=== PATIENT | female | born 1960 | race Caucasian/White ===

== ENCOUNTER 2018-05-23 17:14 | Inpatient (IN) | payer SELFPAY ==
[2018-05-23] MEDS ORDERED: Magnesium Sulfate 2 GM in Sodium Chloride 0.9% 100 ML IVPB ONE (18:15)
[2018-05-23 18:23] LABS: #Eosinphils 0.2 thou/uL (0.0-0.7); #Lymphocytes 0.9 thou/uL (1.20-3.40); #Monocytes 0.3 thou/uL (0.11-0.59); #Neutrophils 9.2 thou/uL (1.40-6.50); %Basophils 0.4 % (0.0-1.0); %Lymphocytes 8.7 % (21.0-51.0); %Monocytes 2.4 % (0.0-10.0); %Neutrophils 86.5 % (42.0-75.0); Hemoglobin 15.1 g/dL (12.0-16.0); Mean Corpuscular HGB CONC 33.3 g/dL (32.0-36.0); Mean Corpuscular Hemoglobin 33.7 pg (27.0-31.0); Mean Platelet Volume 5.9 fL (7.4-10.4); Platelet Count 274 thou/uL (130-400); Red Blood Cell (RBC) Count 4.48 mill/uL (4.20-5.40); White Blood Cell (WBC) Count 10.6 thou/uL (4.8-10.8)
[2018-05-23 18:26] LABS: pH, Arterial 7.35 (7.35-7.45)
[2018-05-23 18:28] LABS: CO2 Tension 59.8 mmHg (35.0-45.0); O2 Tension (PaO2) 63.4 mmHg (80.0-100.0)
[2018-05-23 18:29] LABS: Actual Bicarbonate (HCO3a) 32.5 mEq/L (22-28); Hematocrit-ABG 46.1 % (36.0-47.0)
[2018-05-23 18:30] LABS: Analyzer IN Cardio ER; Calcium, Ionized 1.2 mmol/L (1.12-1.30); Puncture Site RRA
[2018-05-23 18:49] LABS: Troponin I Less than 0.010 ng/mL (< 0.028)
[2018-05-23] MEDS ORDERED: Ondansetron HCl/PF 4 MG/2 ML Vial IVP PRN (19:55)
[2018-05-23] MEDS: cefTRIAXone\\ROCEPHIN 1 GM in Sodium Chloride 0.9% 100 ML IVPB SCH (21:13)
[2018-05-23] MEDS: HYDROcodone/Acetaminophen 7.5/325 mg Tablet PO PRN (21:44)
[2018-05-23 22:08] VITALS: BMI 31.9
[2018-05-23] MEDS: Azithromycin 500 MG in Sodium Chloride 0.9% 250 ML 250 ML IVPB SCH (22:42)
--- NOTE | 2018-05-23 23:12 | ULT ---
LEFT LOWER EXTREMITY VENOUS DUPLEX STUDY: 05/23/18 Deep veins of the left leg evaluated with color doppler, spectral analysis and compression. INDICATIONS: Left lower extremity pain and edema. Deep veins of left lower extremity evaluated including common femoral, profunda femoral, femoral vein , popliteal, and posterior tibial vein. Greater saphenous vein evaluated. These veins show normal bl ood flow and compression. No evidence of DVT. IMPRESSION: No evidence of left lower extremity DVT. POS: AUNG
[2018-05-24] MEDS: Acetaminophen 325 MG TAB PO PRN (00:25)
--- NOTE | 2018-05-24 00:33 | HP ---
CODE STATUS: FULL CODE. PRIMARY CARE PHYSICIAN: The patient is from out of town. No PCP in the area. TIME OF EVALUATION: 7:40 p.m. CHIEF COMPLAINT: Shortness of breath. HISTORY OF PRESENT ILLNESS: This is a 58-year-old female with past medical history of COPD. The patient came to the hospital after having shortness of breath that has been getting worse gradually, for the past 2 days, with no clear triggers, no alleviating factors. The patient believes that it might be related to how dry and hot the weather is, because she did not have the problem before, exposing herself to the weather, the symptoms are reported as moderate to severe. The patient has some chest pain from the cough. REVIEW OF SYSTEMS: Constitutional: No fever, no chills. Generalized weakness. Respiratory: The patient has cough. No sputum production, shortness of breath. Cardiovascular: No chest pain, palpitation, shortness of breath. Gastrointestinal: No nausea, no vomiting, no diarrhea or abdominal pain. TOWING PILOT: No dizziness, headache, feeling lightheaded. Genitourinary: No burning on urination. Extremities: No leg swelling. All other systems reviewed were negative except for the findings mentioned above. PAST MEDICAL HISTORY: COPD, hypertension, hypothyroidism, drop foot. PAST SURGICAL HISTORY: No surgeries in the past. PSYCHIATRIC HISTORY: Anxiety and depression. SOCIAL HISTORY: The patient is a former drug user, abuse cocaine and methamphetamines, former tobacco smoker. FAMILY HISTORY: Reported as negative. ALLERGIES: CODEINE and IBUPROFEN. REPORTED MEDICATIONS: [place] Thyroid, metoprolol, amlodipine, [place], Valium. PHYSICAL EXAMINATION: VITAL SIGNS: On presentation, blood pressure 156/100, heart rate 80, respiratory rate 21, oxygen saturation 99% on 2 liters. GENERAL APPEARANCE: The patient is alert, oriented, not in acute distress. HEENT: Eyes: Normal conjunctivae. Moist oral mucosa. Anicteric. NECK: No JVD. RESPIRATORY: Bilateral air entry is reduced. No rales. The patient has bilateral scattered wheezing. Symmetrical expansion. CARDIOVASCULAR: Normal rate, regular rhythm, no murmurs, no gallop. No edema. ABDOMEN: Soft, normal bowel sounds. MUSCULOSKELETAL: Baseline range of motion and strength. No tenderness. SKIN: Warm and intact. No pallor, no rash, no redness. NEUROLOGIC: Baseline sensory. No evidence of any new focal weakness. Baseline speech. Cranial nerve seems to be intact. PSYCHIATRIC: The patient is in good mood. No anxiety, oriented, optimal judgment. LABORATORY DATA AND IMAGING: White count was 10, hemoglobin was 15, platelet count 274. ABG was done with pH 7.35, pCO2 of 59, oxygen 63, that was on nasal cannula. Troponin was negative. Chemistry was reported as negative. The EKG was discussed with the performing physician in the ER, the patient had normal sinus rhythm at a rate of 80 with no acute findings for ischemia. Chest x-ray prior to transfer was done was discussed with ER physician, it was negative. ASSESSMENT AND PLAN: The patient will be placed in the hospital for the following medical problems: 1. Chronic obstructive pulmonary disease exacerbation, the patient has hypoxia prior to transfer, improved with nasal cannula, the reported saturation in the 80s, has a pCO2 retention in the ABG. The patient has been treated with antibiotics, steroids, and nebulizer. We will monitor overnight. 2. Acute hypoxic respiratory failure, the patient was transferred to hospital. Since prior to transfer, she had saturations in the 80s, that has improved with treatment in ER and also supplemental oxygen. During my examination, saturation is 95% on 2 liters. We will treat underlying condition and continue oxygen support. 3. Uncontrolled hypertension with systolic blood pressure higher than 140, reconcile home medications, adjust the treatment as needed. 4. History of depression and anxiety, this is chronic, seems to be stable at this point. 5. Deep venous thrombosis prophylaxis. MTDD
[2018-05-24] MEDS: HYDROcodone/Acetaminophen 7.5/325 mg Tablet PO PRN ×4 (03:50→20:53)
[2018-05-24 06:28] LABS: Band 2 % (5-11); Hemoglobin 14.7 g/dL (12.0-16.0); Lymphocytes 6 % (21-51); MDiff Complete? YES; Mean Corpuscular HGB CONC 33.4 g/dL (32.0-36.0); Mean Corpuscular Hemoglobin 33.8 pg (27.0-31.0); Mean Platelet Volume 6.1 fL (7.4-10.4); Monocytes 3 % (0-10); Neutrophil 89 % (42-75); Platelet Count 286 thou/uL (130-400); RBC Distribution Width 11.9 % (11.5-14.5); Red Blood Cell (RBC) Count 4.33 mill/uL (4.20-5.40); White Blood Cell (WBC) Count 7.6 thou/uL (4.8-10.8)
[2018-05-24 06:29] LABS: Anion Gap 14 mmol/L (10-20); BUN (Urea Nitrogen) 13 mg/dL (9.8-20.1); Calc. Creatinine Clearance 138 mL/min (70-130); Calcium 9.5 mg/dL (7.8-10.44); Carbon Dioxide 28 mmol/L (22-29); Chloride 104 mmol/L (98-107); Estimated GFR-MDRD Greater than 90; Glucose 169 mg/dL (70-105); Potassium 4.8 mmol/L (3.5-5.1); Sodium 141 mmol/L (136-145)
[2018-05-24 08:04] LABS: Acetaminophen Less than 6.0 mcg/mL (10.0-30.0); Alcohol Less than 10 mg/dL (Less than 10); Salicylate Less than 8.0 mg/dL (15.0-30.0)
[2018-05-24] MEDS: Enoxaparin Sodium 40 MG/0.4 ML SYRINGE SC SCH (08:05)
--- NOTE | 2018-05-24 08:41 | RAD ---
CHEST 1 VIEW: HISTORY: Chest pain. FINDINGS: Cardiac silhouette is magnified by projection. Pulmonary vasculature upper limits of normal. Subtle ill-defined opacity projects over the right lower lobe and mid chest, possibly superior segment righ t lower lobe. No lobar consolidation or evidence of pneumothorax. Calcified granulomata are consist ent with healed granulomatous disease. IMPRESSION: Mild right lower lobe infiltrate. Clinical correlation regarding other signs and symptoms of right l ower lobe pneumonitis is required. Please consider upright PA and lateral views of the chest when pa tient can undergo that exam. POS: AUNG
[2018-05-24 09:40] LABS: Amphetamine Not Detected (NotDetected); Barbiturates Screen Not Detected (NotDetected); Benzodiazepine Screen Detected (NotDetected); Cocaine Metabolite Screen Not Detected (NotDetected); Medtox Control Line Valid? VALID (VALID); Medtox Reader # READER 4; Methadone Not Detected (NotDetected); Methamphetamine Not Detected (NotDetected); Opiate Screen Detected (NotDetected); Oxycodone Screen Not Detected (NotDetected); Phencyclidine (PCP) Not Detected (NotDetected); THC/Cannabinoid Screen Not Detected (NotDetected); Tricyclic Screen Not Detected (NotDetected)
--- NOTE | 2018-05-24 11:07 | PDOC.PN ---
- Subjective Encounter Start Date: 05/24/18 Encounter Start Time: 08:30 Subjective: sob is better, no fever - Objective Resuscitation Status: Resuscitation Status FULL:Full Resuscitation MAR Reviewed: Yes Vital Signs & Weight: Vital Signs (12 hours) Temp Pulse Resp BP BP Pulse Ox 05/24/18 09:13 108 H 22 H 94 L 05/24/18 09:09 93 L 05/24/18 08:00 97.0 F L 92 16 05/24/18 07:48 97.0 F L 92 16 178/82 H 05/24/18 03:02 97.8 F 93 16 167/93 H 100 05/24/18 00:52 18 93 L 05/24/18 00:00 97.7 F 136/89 88 L Weight Weight 204 lb I&O: 05/23/18 05/24/18 05/25/18 06:59 06:59 06:59 Intake Total 950 Output Total 650 Balance 300 Result Diagrams: 05/24/18 05:53 05/24/18 05:53 Phys Exam - Physical Examination HEENT: PERRLA, moist MMs Neck: no JVD, supple Respiratory: no wheezing, no rales rhonchi+ Cardiovascular: RRR, no significant murmur Gastrointestinal: soft, non-tender, positive bowel sounds Musculoskeletal: no edema, pulses present Neurological: non-focal, moves all 4 limbs Psychiatric: A&O x 3 Dx/Plan (1) COPD exacerbation Code(s): J44.1 - CHRONIC OBSTRUCTIVE PULMONARY DISEASE W (ACUTE) EXACERBATION Status: Acute (2) PNA (pneumonia) Code(s): J18.9 - PNEUMONIA, UNSPECIFIED ORGANISM Status: Acute Qualifiers: Pneumonia type: due to unspecified organism Laterality: right (3) HTN (hypertension) Code(s): I10 - ESSENTIAL (PRIMARY) HYPERTENSION Status: Chronic Qualifiers: Hypertension type: essential hypertension Qualified Code(s): I10 - Essential (primary) hypertension (4) Hypothyroidism Code(s): E03.9 - HYPOTHYROIDISM, UNSPECIFIED Status: Chronic Qualifiers: Hypothyroidism type: unspecified Qualified Code(s): E03.9 - Hypothyroidism , unspecified (5) Acute respiratory failure with hypoxia Code(s): J96.01 - ACUTE RESPIRATORY FAILURE WITH HYPOXIA Status: Resolved - Plan is on nasal canula now -: continue zithro, ceftriaxone, nebs and steroids -: cxr results noted, tx to med floor -: mcv is 101, eats meat and veggies, no heavy alc usage -: chronic left foot drop after child but amb well * . Review of Systems - Medications/Allergies Allergies/Adverse Reactions: Allergies Allergy/AdvReac Type Severity Reaction Status Date / Time codeine Allergy Verified 05/23/18 20:46 ibuprofen Allergy Verified 05/23/18 20:46 Medications: Current Medications Acetaminophen (Tylenol) 650 mg PO Q4H PRN PRN Reason: Headache/Fever or Pain Last Admin: 05/24/18 00:25 Dose: 650 mg Hydrocodone Bitart/Acetaminophen ([place] 7.5/325) 2 tab PO Q6H PRN PRN Reason: Moderate Pain (4-6) Last Admin: 05/24/18 09:28 Dose: 2 tab Albuterol/Ipratropium (Duoneb) 3 ml NEB [id number] PRN PRN Reason: SOB &/or Wheezing Last Admin: 05/24/18 09:13 Dose: 3 ml Enoxaparin Sodium (Lovenox) 40 mg SC 0900 [facility] Last Admin: 05/24/18 08:05 Dose: 40 mg Ceftriaxone Sodium 1 gm/ (Sodium Chloride) 100 mls @ 200 mls/hr IVPB Q24HR NIGEL Last Admin: 05/23/18 21:13 Dose: 100 mls Azithromycin 500 mg/ Sodium (Chloride) 250 mls @ 250 mls/hr IVPB Q24HR NIGEL Last Admin: 05/23/18 22:42 Dose: 250 mls Methylprednisolone Sodium Succinate (Solu-Medrol) 40 mg IVP Q6HR NIGEL Last Admin: 05/24/18 06:04 Dose: Not Given Ondansetron HCl (Zofran) 4 mg IVP Q6H PRN PRN Reason: Nausea/Vomiting
[2018-05-24] MEDS: Azithromycin 500 MG in Sodium Chloride 0.9% 250 ML 250 ML IVPB SCH (20:42)
[2018-05-24] MEDS: cefTRIAXone\\ROCEPHIN 1 GM in Sodium Chloride 0.9% 100 ML IVPB SCH (21:15)
[2018-05-25] MEDS: HYDROcodone/Acetaminophen 7.5/325 mg Tablet PO PRN (02:59)
[2018-05-25] MEDS: Acetaminophen 325 MG TAB PO PRN ×2 (05:46→12:42)
[2018-05-25] MEDS ORDERED: HYDROcodone/Acetaminophen 7.5/325 mg Tablet PO PRN (07:35)
[2018-05-25] MEDS: Amlodipine 5 MG TAB PO SCH (08:10)
[2018-05-25] MEDS: Enoxaparin Sodium 40 MG/0.4 ML SYRINGE SC SCH (08:10)
[2018-05-25] MEDS: Metoprolol Tartrate 25 MG TAB PO SCH ×2 (08:10→19:47)
[2018-05-25] MEDS ORDERED: Thyroid 60 MG TAB PO SCH (08:30)
--- NOTE | 2018-05-25 11:54 | PDOC.PN ---
- Subjective Encounter Start Date: 05/25/18 Encounter Start Time: 10:30 Subjective: wants extra norco like q4h, explained to her it will worsen her resp issue -: no sob but has back pain and doesn't feel good this am - Objective Resuscitation Status: Resuscitation Status FULL:Full Resuscitation MAR Reviewed: Yes Vital Signs & Weight: Vital Signs (12 hours) Temp Pulse Resp BP BP Pulse Ox 05/25/18 11:40 98.1 F 90 20 152/93 H 91 L 05/25/18 08:10 84 160/101 H 05/25/18 08:02 98.9 F 96 20 160/101 H 90 L 05/25/18 08:00 98.9 F 84 20 90 L 05/25/18 04:00 98.4 F 82 20 148/90 H 93 L 05/25/18 00:46 98.1 F 80 20 129/89 92 L Weight Weight 204 lb I&O: 05/24/18 05/25/18 05/26/18 06:59 06:59 06:59 Intake Total 950 1310 240 Output Total 650 Balance 300 1310 240 Result Diagrams: 05/24/18 05:53 05/24/18 05:53 Phys Exam - Physical Examination HEENT: PERRLA, moist MMs Neck: no JVD, supple Respiratory: no wheezing, no rales rhonchi+ Cardiovascular: RRR, no significant murmur Gastrointestinal: soft, no distention, positive bowel sounds Musculoskeletal: no edema, pulses present Neurological: non-focal, moves all 4 limbs Psychiatric: normal affect, A&O x 3 Dx/Plan (1) COPD exacerbation Code(s): J44.1 - CHRONIC OBSTRUCTIVE PULMONARY DISEASE W (ACUTE) EXACERBATION Status: Acute (2) PNA (pneumonia) Code(s): J18.9 - PNEUMONIA, UNSPECIFIED ORGANISM Status: Acute Qualifiers: Pneumonia type: due to unspecified organism Laterality: right (3) HTN (hypertension) Code(s): I10 - ESSENTIAL (PRIMARY) HYPERTENSION Status: Chronic Qualifiers: Hypertension type: essential hypertension Qualified Code(s): I10 - Essential (primary) hypertension (4) Hypothyroidism Code(s): E03.9 - HYPOTHYROIDISM, UNSPECIFIED Status: Chronic Qualifiers: Hypothyroidism type: unspecified Qualified Code(s): E03.9 - Hypothyroidism , unspecified (5) Acute respiratory failure with hypoxia Code(s): J96.01 - ACUTE RESPIRATORY FAILURE WITH HYPOXIA Status: Resolved - Plan chronic back pain: cautious use of morphine prn -: may dc anytime home if she feels good -: omnicef, prednisone, nebs -: norvasc and lopressor -: to amb in hallway as tolerated * . Review of Systems - Medications/Allergies Allergies/Adverse Reactions: Allergies Allergy/AdvReac Type Severity Reaction Status Date / Time codeine Allergy Verified 05/23/18 20:46 ibuprofen Allergy Verified 05/23/18 20:46 Medications: Current Medications Acetaminophen (Tylenol) 650 mg PO Q4H PRN PRN Reason: Headache/Fever or Pain Last Admin: 05/25/18 05:46 Dose: 650 mg Hydrocodone Bitart/Acetaminophen ([place] 7.5/325) 2 tab PO Q4H PRN PRN Reason: Pain Albuterol/Ipratropium (Duoneb) 3 ml NEB [id number] PRN PRN Reason: SOB &/or Wheezing Last Admin: 05/24/18 16:24 Dose: 3 ml Amlodipine Besylate (Norvasc) 5 mg PO DAILY [facility] Last Admin: 05/25/18 08:10 Dose: 5 mg Cefdinir (Omnicef) 300 mg PO BID [facility] Enoxaparin Sodium (Lovenox) 40 mg SC 0900 [facility] Last Admin: 05/25/18 08:10 Dose: 40 mg Metoprolol Tartrate (Lopressor) 25 mg PO BID [facility] Last Admin: 05/25/18 08:10 Dose: 25 mg Morphine Sulfate (Morphine) 2 mg SLOW IVP 1000 [facility] Stop: 05/25/18 12:00 Last Admin: 05/25/18 09:48 Dose: 2 mg Morphine Sulfate (Morphine) 2 mg SLOW IVP Q4H PRN PRN Reason: Chest Pain/BP Elevations Ondansetron HCl (Zofran) 4 mg IVP Q6H PRN PRN Reason: Nausea/Vomiting Prednisone (Prednisone) 40 mg PO ONE [facility] Prednisone (Prednisone) 20 mg PO QAM-WM [facility] Thyroid ([place] Thyroid) 60 mg PO 0600 [facility]
[2018-05-25] MEDS ORDERED: predniSONE 20 MG TAB PO SCH (12:00)
[2018-05-25] MEDS: Cefdinir 300 MG CAP PO SCH (19:47)
[2018-05-26] MEDS ORDERED: Thyroid 60 MG TAB PO SCH (06:00)
[2018-05-26] MEDS ORDERED: predniSONE 20 MG TAB PO SCH (08:00)
[2018-05-26] MEDS: Cefdinir 300 MG CAP PO SCH (09:00)
[2018-05-26] MEDS: Amlodipine 5 MG TAB PO SCH (09:00)
[2018-05-26] MEDS: Metoprolol Tartrate 25 MG TAB PO SCH (09:00)
[2018-05-26] MEDS: Enoxaparin Sodium 40 MG/0.4 ML SYRINGE SC SCH (09:01)
--- NOTE | 2018-05-26 12:41 | PDOC.PN ---
- Subjective Encounter Start Date: 05/26/18 Encounter Start Time: 08:15 Subjective: no sob, feels better - Objective Resuscitation Status: Resuscitation Status FULL:Full Resuscitation MAR Reviewed: Yes Vital Signs & Weight: Vital Signs (12 hours) Temp Pulse Resp BP BP Pulse Ox 05/26/18 09:00 96 148/93 H 05/26/18 08:00 98.2 F 96 18 98 05/26/18 07:27 98.2 F 96 18 148/93 H 98 Weight Weight 204 lb I&O: 05/25/18 05/26/18 05/27/18 06:59 06:59 06:59 Intake Total 1310 1600 240 Balance 1310 1600 240 Result Diagrams: 05/24/18 05:53 05/24/18 05:53 Phys Exam - Physical Examination HEENT: PERRLA, moist MMs Neck: no JVD, supple Respiratory: no wheezing, no rales Cardiovascular: RRR, no significant murmur Gastrointestinal: soft, non-tender, positive bowel sounds Musculoskeletal: no edema, pulses present Neurological: non-focal, moves all 4 limbs Psychiatric: normal affect, A&O x 3 Dx/Plan (1) COPD exacerbation Code(s): J44.1 - CHRONIC OBSTRUCTIVE PULMONARY DISEASE W (ACUTE) EXACERBATION Status: Acute (2) PNA (pneumonia) Code(s): J18.9 - PNEUMONIA, UNSPECIFIED ORGANISM Status: Acute Qualifiers: Pneumonia type: due to unspecified organism Laterality: right (3) HTN (hypertension) Code(s): I10 - ESSENTIAL (PRIMARY) HYPERTENSION Status: Chronic Qualifiers: Hypertension type: essential hypertension Qualified Code(s): I10 - Essential (primary) hypertension (4) Hypothyroidism Code(s): E03.9 - HYPOTHYROIDISM, UNSPECIFIED Status: Chronic Qualifiers: Hypothyroidism type: unspecified Qualified Code(s): E03.9 - Hypothyroidism , unspecified (5) Acute respiratory failure with hypoxia Code(s): J96.01 - ACUTE RESPIRATORY FAILURE WITH HYPOXIA Status: Resolved - Plan hemostable -: dc pt home -: to continue steroid taper and omnicef along with nebs * .
[2018-05-26 16:00] VITALS: BP 163/107; TEMP 97.7
--- NOTE | 2018-05-26 23:42 | DIS ---
DATE OF ADMISSION: 05/23/2018 DATE OF DISCHARGE: 05/26/2018 DISCHARGE DISPOSITION: To home. PRIMARY DISCHARGE DIAGNOSES: Acute on chronic obstructive pulmonary disease exacerbation resolving and pneumonia resolving. SECONDARY DISCHARGE DIAGNOSES: Hypertension, hypothyroidism, acute respiratory failure with hypoxia on arrival, resolved. PROCEDURES DONE DURING HOSPITALIZATION: Chest x-ray done on the day of admission showed right lower lobe infiltrate. Left lower extremity ultrasound venous Doppler done showed no evidence of DVT. Hemoglobin and hematocrit 14 and 43 and platelet count 286. Blood gas on arrival showed pH of 7.35, pCO2 59 , pO2 63. One set of cardiac enzymes were negative. DISCHARGE MEDICATIONS: Patient to continue Omnicef 300 mg p.o. twice daily for another 3 days, prednisone tapering dose starting at 10 mg twice daily over a course of 12 days and to discontinue, Lopressor 50 mg twice daily, [place] Thyroid 60 mg p.o. daily, DuoNebs 4 times daily, Ava p.r.n. for pain, Symbicort inhaler 2 puffs twice daily, Norvasc 5 mg daily. ALLERGIES: CODEINE and IBUPROFEN. DISCHARGE PLAN: Patient to follow up with primary care physician in 1 week. BRIEF COURSE DURING HOSPITALIZATION: Patient initially came to ER on with complaints of shortness of breath and wheezing. Her initial x-rays also showed right lower lobe infiltrate. The patient has known history of COPD. She was placed on broad spectrum antibiotics, steroids and nebulizations. She has responded well to above measures. She needs to continue antibiotics for another 3 days and steroid taper as prescribed. The patient also has chronic back pain and needs to see a primary care physician for further workup towards the same. was requesting narco and morphine every 4hrs for her back issue and has been counselled against any use of narcotic in view of her lung problem and respiratory depression. She is hemodynamically stable, ambulating and eating well prior to discharge. Please see a [id number] documentation on SMRxT for the day of discharge. JUAN PABLO
== END 2018-05-26 17:52 | disposition home or self-care (01) | DRG 193 ==
LOC: ERS 17:14 → 2NO 19:20 → T4-A 05-24 12:33
PROVIDERS: ADMIT Hospitalist; ATTEND Hospitalist
DX: J18.9 Pneumonia, unspecified organism (principal); J96.01 Acute respiratory failure with hypoxia; J44.1 Chronic obstructive pulmonary disease with (acute) exacerbation; I10 Essential (primary) hypertension; E03.9 Hypothyroidism, unspecified; M21.379 Foot drop, unspecified foot; F41.9 Anxiety disorder, unspecified; F32.9 Major depressive disorder, single episode, unspecified; Z87.891 Personal history of nicotine dependence
CPT/HCPCS: 36415; 71045; 80048; 80306; 80307; 82550; 82553; 82805; 84484; 85025; 90471; 90732; 93005; 94640; 94760; 96365; 96375; G0009; J0456; J0696; J1650; J2270; J2920; J3475; J7050; J7506; J7620

== ENCOUNTER 2018-05-27 01:22 | Inpatient (IN) | payer SELFPAY ==
[2018-05-27 03:20] LABS: #Basophils 0.1 thou/uL (0.0-0.2); #Eosinphils 0.2 thou/uL (0.0-0.7); #Lymphocytes 3.2 thou/uL (1.20-3.40); #Monocytes 0.9 thou/uL (0.11-0.59); #Neutrophils 5.5 thou/uL (1.40-6.50); %Basophils 0.6 % (0.0-1.0); %Eosinophils 2.2 % (0.0-10.0); %Monocytes 9.2 % (0.0-10.0); Hemoglobin 15.2 g/dL (12.0-16.0); Mean Corpuscular HGB CONC 33.6 g/dL (32.0-36.0); Mean Platelet Volume 5.8 fL (7.4-10.4); Platelet Count 265 thou/uL (130-400); Red Blood Cell (RBC) Count 4.47 mill/uL (4.20-5.40); White Blood Cell (WBC) Count 9.9 thou/uL (4.8-10.8)
[2018-05-27 03:41] LABS: ALT (SGPT) 12 U/L (8-55); AST (SGOT) 9 U/L (5-34); Albumin 4.1 g/dL (3.5-5.0); Alkaline Phosphatase 92 U/L (40-150); Anion Gap 14 mmol/L (10-20); BUN (Urea Nitrogen) 15 mg/dL (9.8-20.1); Bilirubin, Total 0.2 mg/dL (0.2-1.2); Calc. Creatinine Clearance 0 mL/min (70-130); Calcium 9.7 mg/dL (7.8-10.44); Carbon Dioxide 34 mmol/L (22-29); Chloride 98 mmol/L (98-107); Estimated GFR-MDRD Greater than 90; Globulin 2.5 g/dL (2.4-3.5); Glucose 90 mg/dL (70-105); Potassium 4.2 mmol/L (3.5-5.1); Protein, Total 6.6 g/dL (6.0-8.3); Sodium 142 mmol/L (136-145)
[2018-05-27 03:45] LABS: Troponin I Less than 0.010 ng/mL (< 0.028)
[2018-05-27] MEDS ORDERED: methylPREDNISolone Sod Succ/PF 125 MG/2 ML VIAL ONE (04:51)
[2018-05-27] MEDS ORDERED: Acetaminophen 500 MG TAB ONE (04:51)
[2018-05-27] MEDS ORDERED: Nitroglycerin 0.4 MG TAB (25 Tab Bottle) ONE (05:10)
[2018-05-27] MEDS ORDERED: hydrALAZINE 20 MG/ML VIAL ONE (05:24)
[2018-05-27] MEDS ORDERED: Lorazepam 2 MG/ML VIAL ONE (05:45)
[2018-05-27] MEDS ORDERED: Ondansetron HCl/PF 4 MG/2 ML Vial IVP PRN ×2 (07:21→14:44)
[2018-05-27] MEDS ORDERED: Ondansetron ODT 4 MG TAB SL PRN (07:21)
[2018-05-27] MEDS ORDERED: Acetaminophen 325 MG TAB PO PRN (07:21)
[2018-05-27] MEDS ORDERED: hydrALAZINE 20 MG/ML VIAL SLOW IVP PRN ×2 (07:22→14:44)
[2018-05-27 08:52] VITALS: BMI 30.9
--- NOTE | 2018-05-27 09:15 | RAD ---
CHEST PA AND LATERAL: Date: 05/27/18 HISTORY: 58-year-old female with history of cough and respiratory difficulty, wheezing. COMPARISON: 05/24/18. FINDINGS: Increased linear and interstitial and minimal reticulonodular parenchymal changes bilaterally, stable . Heart size is normal. No new confluent process. No pneumothorax. No pleural effusion. IMPRESSION: Stable increased linear and interstitial and reticulonodular parenchymal changes bilaterally, includi ng the right upper lobe, without evidence for new confluent pneumonia. Atherosclerosis of the aorta w ith ectasia. No significant new process. POS: OFF
[2018-05-27] MEDS ORDERED: HYDROcodone/Acetaminophen 5/325 mg Tablet PO PRN (11:24)
[2018-05-27] MEDS ORDERED: Acetaminophen 500 MG TAB PO PRN (14:44)
[2018-05-27] MEDS ORDERED: Benzonatate 100 MG CAP PO PRN (14:44)
[2018-05-27] MEDS ORDERED: cloNIDine 0.1 MG TAB PO PRN (14:44)
[2018-05-27] MEDS ORDERED: Ondansetron ODT 4 MG TAB PO PRN (14:44)
[2018-05-27] MEDS ORDERED: predniSONE 20 MG TAB PO SCH (15:00)
[2018-05-27] MEDS: HYDROcodone/Acetaminophen 7.5/325 mg Tablet PO PRN ×2 (15:42→20:16)
[2018-05-27] MEDS: Mometasone/Formoterol 120 PUFF INHALER INH SCH (19:05)
[2018-05-27] MEDS: Metoprolol Tartrate 50 MG TAB PO SCH (20:15)
[2018-05-27] MEDS: Montelukast Sodium 10 mg Tablet PO SCH (20:15)
[2018-05-27] MEDS: Famotidine 20 MG TAB PO SCH (20:16)
[2018-05-27] MEDS: guaiFENesin ER 600 MG TAB PO SCH (20:16)
--- NOTE | 2018-05-27 20:30 | HP ---
DATE OF ADMISSION: 05/27/2018 PRIMARY CARE PHYSICIAN: Dr. Colby Jorge in [place], [place]. CHIEF COMPLAINT: Shortness of breath. HISTORY OF PRESENT ILLNESS: This is a 58-year-old female who presents to [facility] after a recent admission to [facility] from 05/23/2018 to 05/26/2018. The patient was discharged home on 05/26/2018 after chronic obstructive pulmonary disease exacerbation an d questionable pneumonia of the right lower lobe. The patient was placed on prednisone and Omnicef a nd continued on her regular nebulized treatments at home. The patient states that she experienced in creased shortness of breath and states her oxygen saturation was in the mid 80% range normally runnin g in the upper 80s to low 90s. The patient denies any specific fever, chills, unilateral weakness, l ower extremity swelling, but did take her Ventolin inhaler as well as Symbicort. The patient states she has typical symptoms and pneumonia exacerbation approximately once every year. The patient denie s using any home oxygen or needing chronic oxygen supplementation. The patient denies any tobacco us e, but does use E-cigarettes. In the emergency room, the patient underwent general evaluation includ ing portable chest imaging showing no acute infiltrate or worsening findings from previous chest imag ing. The patient did receive Ativan, hydralazine, nitroglycerin, Solu-Medrol and Tylenol. The patie nt was referred to the telemetry unit. PAST MEDICAL HISTORY: 1. Chronic obstructive pulmonary disease. 2. Tobacco use, currently E-cigarettes. 3. Chronic pain syndrome with chronic narcotic therapy. 4. Hypertension. 5. Hypothyroidism. 6. History of foot drop. PAST SURGICAL HISTORY: Reviewed and negative. PSYCHIATRIC HISTORY: Positive for anxiety and depression. FAMILY HISTORY: No inheritable diseases per patient report. SOCIAL HISTORY: Patient is x3. Resident of [place], [place]. Visiting her son in the [facility]/[place] area. Former tobacco user, quitting approximately 6 months ago, now using E-cigar ettes. History of remote use of cocaine and methamphetamines, none currently. No alcohol use. No c urrent illicit drug use. 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 CURRENT HOME MEDICATIONS: 1. Amlodipine 5 mg one tablet p.o. daily. 2. Symbicort 160/4.5 two puffs inhaled b.i.d. 3. Omnicef 300 mg p.o. b.i.d. 4. Guaifenesin ER 600 mg p.o. b.i.d. 5. [place] 7.5/325 mg 2 tabs p.o. q.4 hours p.r.n. 6. DuoNeb 3 mL nebulized q.i.d. 7. Metoprolol tartrate 100 mg p.o. b.i.d. 8. Prednisone 10 mg p.o. b.i.d. 9. [place] Thyroid 60 mg p.o. daily. ALLERGIES: CODEINE and IBUPROFEN. REVIEW OF SYSTEMS: The following complete review of systems was negative, unless otherwise mentioned in the HPI or below: Constitutional: Weight loss or gain, ability to conduct usual activities. Sk in: Rash, itching. Eyes: Double vision, pain. ENT/Mouth: Nose bleeding, neck stiffness, pain, te nderness. Cardiovascular: Palpitations, dyspnea on exertion, orthopnea. Respiratory: Shortness of breath, wheezing, cough, hemoptysis, fever or night sweats. Gastrointestinal: Poor appetite, abdom inal pain, heartburn, nausea, vomiting, constipation, or diarrhea. Genitourinary: Urgency, frequenc y, dysuria, nocturia. Musculoskeletal: Pain, swelling. Neurologic/Psychiatric: Anxiety, depressio n. Allergy/Immunologic: Skin rash, bleeding tendency. PHYSICAL EXAMINATION: VITAL SIGNS: Currently, blood pressure 128/79, pulse 93, respiratory rate 19, temperature 97.8 degre es Fahrenheit, O2 saturation 95% on 2 liters per minute by nasal cannula. GENERAL APPEARANCE: This is a 58-year-old female, anxious appearing, responsive and approp riate. HEENT: Pupils are equal, round, and reactive to light and accommodation. Extraocular muscles are in tact. No scleral icterus, no conjunctival injection. Nares patent. OP is clear. Teeth in fair rep air. NECK: Supple, no cervical adenopathy, no thyromegaly, no carotid bruits, no JVD appreciated. Cervic al spine with full active and passive range of motion. CHEST: Expiratory wheezes in the right hemithorax. Otherwise, lung sounds are clear. CARDIOVASCULAR: S1, S2 with distant heart sounds. No murmur, rub or gallop appreciated. ABDOMEN: Rounded, soft, nontender, nondistended. Bowel sounds are positive in all four quadrants. There is no hepatosplenomegaly, no abdominal bruits, no rebound or guarding appreciated. EXTREMITIES: Warm and dry with fair turgor. No clubbing, cyanosis or asymmetric edema appreciated. Pulses palpable distally at the dorsalis pedis, posterior tibial, and popliteal arteries bilaterally . Capillary refill less than 2 seconds. NEUROLOGIC: Right lower extremity foot drop noted consistent with prior history. The patient not ob served ambulatory during this exam. Rest of the cranial nerves 2-12 are grossly intact. PERTINENT LABORATORY AND X-RAY FINDINGS: Carbon dioxide level 34. The rest of the complete metaboli c profile within normal limits. CBC showed MCV of 101 with hemoglobin 15, hematocrit 45, platelet co unt 265. Portable chest x-ray dated 05/27/2018 showed interstitial and reticulonodular parenchymal c hanges bilaterally. EKG dated 05/27/2018 by my interpretation shows sinus mechanism with heart rates in the 80s. Normal R-wave progression noted in the precordial leads. Normal axis. No acute ST-T w ave changes appreciated. ASSESSMENT AND PLAN: 1. Acute chronic obstructive pulmonary disease exacerbation. Mild. We will place in observation st atus. Continue DuoNebs q.3 hours. Continue prednisone 40 mg daily. Zithromax 500 mg p.o. daily. A dd Singulair 10 mg p.o. daily. Resume Symbicort 2 puffs inhaled b.i.d. 2. Hypertension, labile. Resume home antihypertensive regimen to include amlodipine 5 mg daily, and metoprolol 100 mg p.o. b.i.d. 3. Hypothyroidism. Continue [place] Thyroid 60 mg daily. 4. Chronic pain syndrome. Continue home regimen to include [place] 7.5/325 mg 2 tabs p.o. q.4 hours p .r.n. 5. Prophylaxis. Sequential compression devices while in bed. Pepcid 20 mg p.o. b.i.d. 6. Code status is FULL. Surrogate medical decision maker is patient's son.
[2018-05-28] MEDS: HYDROcodone/Acetaminophen 7.5/325 mg Tablet PO PRN ×6 (00:31→20:56)
[2018-05-28 05:09] LABS: ALT (SGPT) 12 U/L (8-55); AST (SGOT) 8 U/L (5-34); Albumin 3.8 g/dL (3.5-5.0); Alkaline Phosphatase 85 U/L (40-150); Anion Gap 15 mmol/L (10-20); BUN (Urea Nitrogen) 16 mg/dL (9.8-20.1); Bilirubin, Total 0.3 mg/dL (0.2-1.2); Calc. Creatinine Clearance 145 mL/min (70-130); Calcium 9.4 mg/dL (7.8-10.44); Carbon Dioxide 31 mmol/L (22-29); Chloride 100 mmol/L (98-107); Estimated GFR-MDRD Greater than 90; Globulin 2.3 g/dL (2.4-3.5); Glucose 107 mg/dL (70-105); Potassium 4.5 mmol/L (3.5-5.1); Protein, Total 6.1 g/dL (6.0-8.3); Sodium 141 mmol/L (136-145)
[2018-05-28 05:30] LABS: Band 2 % (5-11); Hemoglobin 14.6 g/dL (12.0-16.0); Lymphocytes 13 % (21-51); MDiff Complete? YES; Mean Corpuscular HGB CONC 32.6 g/dL (32.0-36.0); Mean Corpuscular Hemoglobin 33.3 pg (27.0-31.0); Mean Platelet Volume 6.5 fL (7.4-10.4); Monocytes 11 % (0-10); Neutrophil 72 % (42-75); Platelet Count 270 thou/uL (130-400); RBC Distribution Width 12.1 % (11.5-14.5); Reactive Lymphocytes 2 % (0-10); White Blood Cell (WBC) Count 11.2 thou/uL (4.8-10.8)
[2018-05-28] MEDS: Mometasone/Formoterol 120 PUFF INHALER INH SCH ×2 (06:12→19:40)
[2018-05-28] MEDS: predniSONE 20 MG TAB PO SCH (08:41)
[2018-05-28] MEDS: Azithromycin 250 MG TAB PO SCH (08:41)
[2018-05-28] MEDS: Amlodipine 5 MG TAB PO SCH (08:42)
[2018-05-28] MEDS: Metoprolol Tartrate 50 MG TAB PO SCH ×2 (08:42→20:56)
[2018-05-28] MEDS: guaiFENesin ER 600 MG TAB PO SCH ×2 (08:42→20:56)
[2018-05-28] MEDS: Famotidine 20 MG TAB PO SCH ×2 (08:42→20:56)
[2018-05-28] MEDS: Thyroid 30 MG TAB PO SCH (09:34)
--- NOTE | 2018-05-28 14:12 | PDOC.PN ---
- Subjective Encounter Start Date: 05/28/18 Encounter Start Time: 14:10 Feels better and then will have abrupt SOB when she feels like she is dying. Was admitted in [place] 6 months ago and had respiratory failure with pneumonia. Was on steroids for six months and gained 50 pounds. She does have daytime somnolence and wakes with headaches. Admits to orthopnea. - Objective Resuscitation Status: Resuscitation Status FULL:Full Resuscitation Vital Signs & Weight: Vital Signs (12 hours) Temp Pulse Resp BP BP BP Pulse Ox 05/28/18 11:26 88 25 H 79 L 05/28/18 11:14 98.2 F 86 16 135/73 78 L 05/28/18 08:45 91 L 05/28/18 08:42 85 177/97 H 05/28/18 08:30 93 L 05/28/18 07:30 97.9 F 85 23 H 05/28/18 07:20 97.9 F 85 23 H 177/97 H 177/97 H 98 05/28/18 06:12 89 16 93 L 05/28/18 04:34 83 05/28/18 04:00 97.5 F L 78 20 184/110 H 96 Weight Weight 197 lb 9.6 oz I&O: 05/27/18 05/28/18 05/29/18 06:59 06:59 06:59 Intake Total 1250 Output Total 950 Balance 300 Result Diagrams: 05/28/18 04:05 05/28/18 04:05 Phys Exam - Physical Examination Constitutional: NAD Obese HEENT: PERRLA, oral pharynx no lesions Neck: no JVD, supple Respiratory: no wheezing, no rales, no rhonchi, clear to auscultation bilateral Cardiovascular: RRR, no significant murmur, no rub Gastrointestinal: soft, non-tender, no distention, positive bowel sounds Musculoskeletal: no edema Psychiatric: normal affect, A&O x 3 Skin: no rash, normal turgor Dx/Plan (1) COPD exacerbation Code(s): J44.1 - CHRONIC OBSTRUCTIVE PULMONARY DISEASE W (ACUTE) EXACERBATION Status: Acute (2) HTN (hypertension) Code(s): I10 - ESSENTIAL (PRIMARY) HYPERTENSION Status: Chronic Qualifiers: Hypertension type: essential hypertension Qualified Code(s): I10 - Essential (primary) hypertension (3) Hypothyroidism Code(s): E03.9 - HYPOTHYROIDISM, UNSPECIFIED Status: Chronic Qualifiers: Hypothyroidism type: unspecified Qualified Code(s): E03.9 - Hypothyroidism , unspecified (4) Orthopnea Code(s): R06.01 - ORTHOPNEA Status: Acute - Plan * Continue bronchodilators, steroids. * Consult Pulmonology given the unusual nature of the episode hypoxia. * Needs sleep study. * Echo to assess the orthopnea and reported LE edema.
[2018-05-28] MEDS: Montelukast Sodium 10 mg Tablet PO SCH (20:55)
[2018-05-29] MEDS: HYDROcodone/Acetaminophen 7.5/325 mg Tablet PO PRN ×5 (01:48→21:15)
[2018-05-29] MEDS: Mometasone/Formoterol 120 PUFF INHALER INH SCH ×2 (07:46→18:08)
[2018-05-29] MEDS: Famotidine 20 MG TAB PO SCH ×2 (08:08→21:15)
[2018-05-29] MEDS: Metoprolol Tartrate 50 MG TAB PO SCH ×2 (08:08→21:15)
[2018-05-29] MEDS: Thyroid 30 MG TAB PO SCH (08:08)
[2018-05-29] MEDS: predniSONE 20 MG TAB PO SCH (08:08)
[2018-05-29] MEDS: guaiFENesin ER 600 MG TAB PO SCH ×2 (08:08→21:15)
[2018-05-29] MEDS: Azithromycin 250 MG TAB PO SCH (08:08)
[2018-05-29] MEDS: Amlodipine 5 MG TAB PO SCH (08:09)
[2018-05-29 12:21] LABS: pH, Arterial 7.22 (7.35-7.45)
[2018-05-29 12:22] LABS: Actual Bicarbonate (HCO3a) 35.2 mEq/L (22-28); Base Excess (BEa) 4.3 mEq/L (-2.0 to +3.0); CO2 Tension 87.1 mmHg (35.0-45.0); O2 Tension (PaO2) 91.5 mmHg (80.0-100.0)
[2018-05-29 12:23] LABS: Hemoglobin (Hb) 14.3 g/dL (12.0-16.0)
[2018-05-29 12:24] LABS: Calcium, Ionized 1.2 mmol/L (1.12-1.30)
[2018-05-29 12:25] LABS: ALV-art Gradient 12.325 (0-20); Puncture Site LRA
[2018-05-29] MEDS ORDERED: Furosemide 20 MG/2 ML VIAL SLOW IVP SCH (20:30)
--- NOTE | 2018-05-29 20:50 | PDOC.PN ---
- Subjective Encounter Start Date: 05/29/18 Encounter Start Time: 15:20 Patient went outside to smoke this morning. She was found sitting on a bench by the medical student working with me. He helped her get back to her room. Later in the morning, she had become obtunded and required Bipap and transfer to the [facility]. She feels like the Bipap is helping, but she doesn't like it. - Objective Resuscitation Status: Resuscitation Status FULL:Full Resuscitation Vital Signs & Weight: Vital Signs (12 hours) Temp Pulse Resp BP BP Pulse Ox 05/29/18 19:51 98.4 F 83 18 135/83 91 L 05/29/18 19:00 97.1 F L 70 20 93 L 05/29/18 18:48 77 16 94 L 05/29/18 18:08 77 22 H 94 L 05/29/18 16:45 94 L 05/29/18 15:57 97.1 F L 73 16 138/84 97 05/29/18 15:09 66 20 98 05/29/18 12:45 68 17 97 05/29/18 12:40 98.3 F 69 22 H 97 05/29/18 12:09 72 16 125/85 94 L 05/29/18 11:42 97.9 F 70 22 H 125/68 90 L Weight Weight 197 lb 9.6 oz I&O: 05/28/18 05/29/18 05/30/18 06:59 06:59 06:59 Intake Total 1250 605 Output Total 950 0 Balance 300 0 605 Result Diagrams: 05/28/18 04:05 05/28/18 04:05 Phys Exam - Physical Examination Awake, but still seems very slightly off. Pupils are slightly constrict. Neck: no JVD, supple Respiratory: no wheezing Diminished BS. Cardiovascular: RRR, no significant murmur Musculoskeletal: no edema Dx/Plan (1) COPD exacerbation Code(s): J44.1 - CHRONIC OBSTRUCTIVE PULMONARY DISEASE W (ACUTE) EXACERBATION Status: Acute Comment: Transferred to [facility] on Bipap. Pulmonology following. (2) HTN (hypertension) Code(s): I10 - ESSENTIAL (PRIMARY) HYPERTENSION Status: Chronic Qualifiers: Hypertension type: essential hypertension Qualified Code(s): I10 - Essential (primary) hypertension (3) Hypothyroidism Code(s): E03.9 - HYPOTHYROIDISM, UNSPECIFIED Status: Chronic Qualifiers: Hypothyroidism type: unspecified Qualified Code(s): E03.9 - Hypothyroidism , unspecified (4) Orthopnea Code(s): R06.01 - ORTHOPNEA Status: Acute - Plan * Continue supportive oxygen/Bipap with bronchodilators, steroids and monteleukast. Pulmonology consult.
[2018-05-29] MEDS: Montelukast Sodium 10 mg Tablet PO SCH (21:15)
--- NOTE | 2018-05-30 00:04 | PRG ---
DATE OF SERVICE: 05/29/2018 SERVICE: Pulmonary Medicine. REASON FOR CONSULTATION: COPD exacerbation. HISTORY OF PRESENT ILLNESS: Patient is a 58-year-old white female who presented to the hospital with an acute exacerbation of COPD. This was diagnosed roughly 7 years ago. She is not currently taking any medications because of financial issues. She was in the hospital last week for COPD exacerbation and subsequently discharged on Omnicef and prednisone. She had increasing shortness of breath shortly after discharge from the hospital and returned to the emergency department for increasing difficulty with breathing. She has a cough, bringing up clear to white sputum. She had no fevers or chills. She is not having orthopnea or chest discomfort. The patient has multiple features consistent with obstructive sleep apnea including nocturia, unrefreshing sleep, and dozing off throughout the day. PAST MEDICAL HISTORY: 1. COPD. 2. Tobacco abuse, currently using cigarettes. 3. Chronic pain syndrome, requiring narcotic therapy. 4. Hypertension. 5. Hypothyroidism. 6. Foot drop. PAST SURGICAL HISTORY: None. FAMILY HISTORY: Noncontributory. SOCIAL HISTORY: The patient has greater than 51-[id number] history of smoking. She previously smoked 2 packs on a daily basis. That being said, about 6 months ago, she transitioned to E-cigarettes. She has a remote history of cocaine use. She has no significant alcohol abuse currently. ALLERGIES: CODEINE, IBUPROFEN. MEDICATIONS: List of her inpatient medications were reviewed. Multiple updates were made at this time. REVIEW OF SYSTEMS: General, head, ears, eyes, nose, throat, cardiovascular, respiratory, GI, , musculoskeletal, neurologic, and skin is negative except as mentioned in the HPI. PHYSICAL EXAMINATION: VITAL SIGNS: Afebrile, pulse 83, blood pressure 135/83, respirations 18, saturation 91% on 3 liters nasal cannula. GENERAL: Patient is awake, alert, in no apparent distress. LUNGS: Decent air entry. There is a prolonged expiratory phase with wheezing. That being said, crackles also predominate. No rhonchi are appreciated. HEART: Normal rate, regular. ABDOMEN: Soft, nontender, nondistended. Bowel sounds are positive. MUSCULOSKELETAL: No cyanosis or clubbing. There is trace to 1+ pitting in the bilateral lower extremities. NEUROLOGIC: Grossly nonfocal. LABORATORY DATA: WBC 11.2, hemoglobin 14.6, platelets 270,000. Band count is only 2%. PH 7.22, pCO2 of 87, pO2 of 91. Basic metabolic profile and liver function studies are otherwise unremarkable. Cardiac enzymes are negative x1. BNP was performed. ASSESSMENT: 1. Acute on chronic hypoxic and hypercapnic respiratory failure. 2. Chronic obstructive pulmonary disease with acute exacerbation. 3. Morbid obesity. 4. Obstructive sleep apnea, suspected. 5. Acute on chronic diastolic heart failure, suspected. DISCUSSION AND PLAN: I will provide the patient with a dose of Lasix, as she is minimally volume overload. We will check an echocardiogram. Nebulize medications, steroids and antibiotics will be continued. We will transition her to the IMCU and initiate a brief course of BiPAP. This was titrated up and down at bedside. She did get some narcotics on the floor after she appeared to have some encephalopathy consistent with a metabolic process. Pulmonary Critical Care will continue to follow while she remains in the IMCU. Critical care time: 30 minutes. JUAN PABLO
[2018-05-30] MEDS: Mometasone/Formoterol 120 PUFF INHALER INH SCH ×2 (07:33→19:49)
[2018-05-30] MEDS: Thyroid 30 MG TAB PO SCH (08:06)
[2018-05-30] MEDS: Famotidine 20 MG TAB PO SCH ×2 (08:07→20:43)
[2018-05-30] MEDS: HYDROcodone/Acetaminophen 7.5/325 mg Tablet PO PRN ×4 (08:07→22:24)
[2018-05-30] MEDS: Azithromycin 250 MG TAB PO SCH (08:10)
[2018-05-30] MEDS: guaiFENesin ER 600 MG TAB PO SCH ×2 (08:10→20:42)
[2018-05-30] MEDS: Metoprolol Tartrate 50 MG TAB PO SCH ×2 (08:12→20:42)
[2018-05-30] MEDS: predniSONE 20 MG TAB PO SCH (08:14)
[2018-05-30] MEDS: Amlodipine 5 MG TAB PO SCH (08:15)
[2018-05-30] MEDS ORDERED: Furosemide 20 MG/2 ML VIAL SLOW IVP SCH (09:00)
[2018-05-30 09:10] LABS: #Basophils 0.1 thou/uL (0.0-0.2); #Eosinphils 0.3 thou/uL (0.0-0.7); #Lymphocytes 2.2 thou/uL (1.20-3.40); #Monocytes 0.7 thou/uL (0.11-0.59); #Neutrophils 6.4 thou/uL (1.40-6.50); %Basophils 0.6 % (0.0-1.0); %Eosinophils 2.7 % (0.0-10.0); %Lymphocytes 22.8 % (21.0-51.0); %Monocytes 7.3 % (0.0-10.0); %Neutrophils 66.7 % (42.0-75.0); Hemoglobin 15.5 g/dL (12.0-16.0); Mean Corpuscular Hemoglobin 34.3 pg (27.0-31.0); Mean Platelet Volume 6.2 fL (7.4-10.4); Platelet Count 213 thou/uL (130-400); RBC Distribution Width 12.3 % (11.5-14.5); Red Blood Cell (RBC) Count 4.53 mill/uL (4.20-5.40); White Blood Cell (WBC) Count 9.6 thou/uL (4.8-10.8)
[2018-05-30 09:33] LABS: ALT (SGPT) 14 U/L (8-55); AST (SGOT) 8 U/L (5-34); Albumin 4.2 g/dL (3.5-5.0); Alkaline Phosphatase 98 U/L (40-150); BUN (Urea Nitrogen) 17 mg/dL (9.8-20.1); Bilirubin, Total 0.4 mg/dL (0.2-1.2); Calc. Creatinine Clearance 122 mL/min (70-130); Calcium 9.6 mg/dL (7.8-10.44); Estimated GFR-MDRD 85; Globulin 2.4 g/dL (2.4-3.5); Glucose 131 mg/dL (70-105); Protein, Total 6.6 g/dL (6.0-8.3)
[2018-05-30 11:01] LABS: Chloride 93 mmol/L (98-107); Sodium 142 mmol/L (136-145)
[2018-05-30 11:02] LABS: Carbon Dioxide 35 mmol/L (22-29)
[2018-05-30 11:16] LABS: Anion Gap 18 mmol/L (10-20)
--- NOTE | 2018-05-30 12:15 | PRG ---
DATE OF SERVICE: 05/30/2018 SUBJECTIVE: The patient came off BiPAP this morning. She appears comfortable. She has a strange ef fect when I am talking to her, so it is hard to know for sure how she is doing. PHYSICAL EXAMINATION: VITAL SIGNS: Temperature 97.8, pulse 72, respirations 22, O2 sat 94% on 3 liters, blood pressure 131 /81. HEENT: Unremarkable. NECK: No JVD. LUNGS: Few crackles in the bases. No wheezing. CARDIAC: S1 and S2 regular. ABDOMEN: Soft. EXTREMITIES: No edema. LABORATORY DATA: White blood cell count 9.6, hematocrit 47.1, platelet count 213. Sodium 141, potas sium 4.5, chloride 100, CO2 31, BUN 16, creatinine 0.6, glucose 107. ASSESSMENT: 1. Chronic obstructive pulmonary disease with exacerbation. 2. Acute on chronic hypercapnic respiratory failure. 3. Obesity. PLAN: Patient seems better after BiPAP last night. She is off the BiPAP today. I would say if she can stay off the BiPAP during the day today, then she can probably be transferred back out to the [facility] or. She is continuing therapy with steroids and nebulization treatments.
--- NOTE | 2018-05-30 14:27 | PDOC.PN ---
- Subjective Encounter Start Date: 05/30/18 Encounter Start Time: 13:30 Feeling some better this morning. - Objective Resuscitation Status: Resuscitation Status FULL:Full Resuscitation Vital Signs & Weight: Vital Signs (12 hours) Temp Pulse Resp BP Pulse Ox 05/30/18 11:26 97.8 F 69 22 H 122/75 95 05/30/18 08:15 73 05/30/18 08:00 97.8 F 73 22 H 94 L 05/30/18 07:38 97.8 F 73 25 H 131/81 91 L 05/30/18 07:34 92 L 05/30/18 04:00 98.9 F 74 24 H 141/87 H 94 L 05/30/18 03:14 70 17 96 Weight Weight 197 lb 9.6 oz I&O: 05/29/18 05/30/18 05/31/18 06:59 06:59 06:59 Intake Total 1325 Output Total 0 1800 Balance 0 -475 Result Diagrams: 05/30/18 09:03 05/30/18 09:03 Phys Exam - Physical Examination Constitutional: NAD On NC oxygen. HEENT: oral pharynx no lesions Neck: no JVD, supple Respiratory: no wheezing, no rales, no rhonchi Had some wheezes earlier in the day. Decreased breath sounds. Cardiovascular: RRR, no significant murmur Gastrointestinal: soft, non-tender, no distention Musculoskeletal: no edema Psychiatric: normal affect Skin: normal turgor Dx/Plan (1) COPD exacerbation Code(s): J44.1 - CHRONIC OBSTRUCTIVE PULMONARY DISEASE W (ACUTE) EXACERBATION Status: Acute Comment: Transferred to [facility] on Bipap. Pulmonology following. Better after a night of Bipap. Will transfer back to the floor. Nebs, Oxygen, steroids. (2) HTN (hypertension) Code(s): I10 - ESSENTIAL (PRIMARY) HYPERTENSION Status: Chronic Qualifiers: Hypertension type: essential hypertension Qualified Code(s): I10 - Essential (primary) hypertension Comment: Lopressor and norvasc. (3) Hypothyroidism Code(s): E03.9 - HYPOTHYROIDISM, UNSPECIFIED Status: Chronic Qualifiers: Hypothyroidism type: unspecified Qualified Code(s): E03.9 - Hypothyroidism , unspecified Comment: [place] thyroid (4) Orthopnea Code(s): R06.01 - ORTHOPNEA Status: Acute - Plan * Discussed that she will likely benefit from home oxygen. She is not excited about that prospect. She is planning on moving to [place] or [place] thinking that it will improve her breathing.
[2018-05-30] MEDS: Montelukast Sodium 10 mg Tablet PO SCH (20:42)
[2018-05-31] MEDS: HYDROcodone/Acetaminophen 7.5/325 mg Tablet PO PRN ×5 (02:30→20:07)
[2018-05-31] MEDS: Mometasone/Formoterol 120 PUFF INHALER INH SCH ×2 (06:41→19:32)
[2018-05-31] MEDS: Azithromycin 250 MG TAB PO SCH (07:51)
[2018-05-31] MEDS: predniSONE 20 MG TAB PO SCH (07:52)
[2018-05-31] MEDS: Amlodipine 5 MG TAB PO SCH (07:53)
[2018-05-31] MEDS: Metoprolol Tartrate 50 MG TAB PO SCH ×2 (07:53→20:06)
[2018-05-31] MEDS: Famotidine 20 MG TAB PO SCH ×2 (07:53→20:06)
[2018-05-31] MEDS: guaiFENesin ER 600 MG TAB PO SCH ×2 (07:53→20:07)
[2018-05-31] MEDS: Thyroid 30 MG TAB PO SCH (08:52)
--- NOTE | 2018-05-31 11:05 | PRG ---
DATE OF SERVICE: 05/31/2018 SUBJECTIVE: The patient is sitting up, awake, alert, in no distress. OBJECTIVE: VITAL SIGNS: Temperature is 98.3, pulse 71, blood pressure 123/81, O2 sat 98%. HEENT: Unremarkable. NECK: No JVD. CHEST: Clear without wheeze or rhonchi. CARDIAC: S1 and S2 regular. ABDOMEN: Soft. EXTREMITIES: No edema. ASSESSMENT: Chronic obstructive pulmonary disease exacerbation, which appears to be resolved. RECOMMENDATION: I think she is stable for hospital discharge. She should finish up 5 total days of antibiotics and be sent home on a nebulization therapy and a steroid taper. She is also been on inha led corticosteroids/long-acting beta agonist such as Symbicort or Dulera. She will follow up with avril lacy doctor in [place].
--- NOTE | 2018-05-31 15:50 | PDOC.PN ---
- Subjective Encounter Start Date: 05/31/18 Encounter Start Time: 13:20 Doing better, but still has some issue with getting SOB just walking to the bathroom. She feels like she is improve, but not quite there yet. - Objective Resuscitation Status: Resuscitation Status FULL:Full Resuscitation Vital Signs & Weight: Vital Signs (12 hours) Temp Pulse Resp BP BP Pulse Ox 05/31/18 12:00 98.3 F 71 20 116/78 97 05/31/18 07:53 71 123/81 05/31/18 07:43 98.3 F 71 20 123/81 98 05/31/18 07:41 98.3 F 71 20 98 05/31/18 04:00 97.9 F 68 20 116/71 97 Weight Weight 197 lb 9.6 oz I&O: 05/30/18 05/31/18 06/01/18 06:59 06:59 06:59 Intake Total 1325 960 Output Total 1800 1 Balance -475 959 Result Diagrams: 05/30/18 09:03 05/30/18 09:03 Phys Exam - Physical Examination Constitutional: NAD Neck: no JVD, supple Respiratory: no wheezing, no rales, no rhonchi Diminished breath sounds throughout. Cardiovascular: RRR, no significant murmur Gastrointestinal: soft, non-tender, no distention, positive bowel sounds Musculoskeletal: no edema Psychiatric: normal affect, A&O x 3 Skin: normal turgor Dx/Plan (1) COPD exacerbation Code(s): J44.1 - CHRONIC OBSTRUCTIVE PULMONARY DISEASE W (ACUTE) EXACERBATION Status: Acute Comment: Doing much better today. Keep one more day. Do walking test to see if she qualifies for home oxygen. Continue nebs, oxygen, steroid taper. (2) HTN (hypertension) Code(s): I10 - ESSENTIAL (PRIMARY) HYPERTENSION Status: Chronic Qualifiers: Hypertension type: essential hypertension Qualified Code(s): I10 - Essential (primary) hypertension Comment: Lopressor and norvasc. (3) Hypothyroidism Code(s): E03.9 - HYPOTHYROIDISM, UNSPECIFIED Status: Chronic Qualifiers: Hypothyroidism type: unspecified Qualified Code(s): E03.9 - Hypothyroidism , unspecified Comment: [place] thyroid (4) Orthopnea Code(s): R06.01 - ORTHOPNEA Status: Acute Comment: Improved. - Plan * Long discussion with the patient regarding the possibility of depression. She has a history of using Prozac successfully. She has not been on it because of cost. Has called her doc for a script and will likely get back on it soon.
[2018-05-31] MEDS: Montelukast Sodium 10 mg Tablet PO SCH (20:07)
[2018-06-01] MEDS: HYDROcodone/Acetaminophen 7.5/325 mg Tablet PO PRN ×5 (00:08→16:44)
[2018-06-01] MEDS: Mometasone/Formoterol 120 PUFF INHALER INH SCH ×2 (06:52→18:51)
[2018-06-01] MEDS: Thyroid 30 MG TAB PO SCH (08:32)
[2018-06-01] MEDS: predniSONE 20 MG TAB PO SCH (08:33)
[2018-06-01] MEDS: Amlodipine 5 MG TAB PO SCH (08:33)
[2018-06-01] MEDS: guaiFENesin ER 600 MG TAB PO SCH ×2 (08:33→20:13)
[2018-06-01] MEDS: Famotidine 20 MG TAB PO SCH ×2 (08:33→20:13)
[2018-06-01] MEDS: Metoprolol Tartrate 50 MG TAB PO SCH ×2 (08:34→20:13)
[2018-06-01] MEDS: Azithromycin 250 MG TAB PO SCH (08:34)
--- NOTE | 2018-06-01 15:26 | PDOC.PN ---
- Subjective Encounter Start Date: 06/01/18 Encounter Start Time: 13:00 Feels better today. Thinks her breathing is improving. Believes she will be able to get off the oxygen soon. Feels like she could go today. - Objective Resuscitation Status: Resuscitation Status FULL:Full Resuscitation Vital Signs & Weight: Vital Signs (12 hours) Temp Pulse Resp BP BP Pulse Ox 06/01/18 13:31 88 L 06/01/18 11:35 97.8 F 65 18 128/90 95 06/01/18 08:33 68 117/60 06/01/18 07:28 98 F 61 16 117/60 94 L 06/01/18 07:15 98 F 68 16 94 L 06/01/18 06:53 96 06/01/18 06:52 96 06/01/18 06:44 96 06/01/18 04:00 97.7 F 67 20 145/88 H 91 L Weight Weight 197 lb 9.6 oz I&O: 05/31/18 06/01/18 06/02/18 06:59 06:59 06:59 Intake Total 960 1450 Output Total 1 Balance 959 1450 Result Diagrams: 05/30/18 09:03 05/30/18 09:03 Phys Exam - Physical Examination Constitutional: NAD HEENT: oral pharynx no lesions Neck: no JVD, supple Respiratory: no wheezing, no rales, no rhonchi Diminished throughout. Cardiovascular: RRR, no significant murmur Gastrointestinal: soft, non-tender, no distention, positive bowel sounds Musculoskeletal: no edema Deviation from normal: Affect is a little strange at times, normal at times. Skin: normal turgor Dx/Plan (1) COPD exacerbation Code(s): J44.1 - CHRONIC OBSTRUCTIVE PULMONARY DISEASE W (ACUTE) EXACERBATION Status: Acute Comment: Feels like she is better. Still hypoxic without oxygen. Working on discharge plan as I believe she is stable. (2) HTN (hypertension) Code(s): I10 - ESSENTIAL (PRIMARY) HYPERTENSION Status: Chronic Qualifiers: Hypertension type: essential hypertension Qualified Code(s): I10 - Essential (primary) hypertension Comment: Lopressor and norvasc. (3) Hypothyroidism Code(s): E03.9 - HYPOTHYROIDISM, UNSPECIFIED Status: Chronic Qualifiers: Hypothyroidism type: unspecified Qualified Code(s): E03.9 - Hypothyroidism , unspecified Comment: [place] thyroid (4) Orthopnea Code(s): R06.01 - ORTHOPNEA Status: Acute Comment: Improved. - Plan * Attempted to get home oxygen arranged yesterday, but that did not come to fruition. Discussed with CM today. Completed all necessary paperwork, but the patient lacks resources to get the oxygen. Continuing to work on it.
[2018-06-01] MEDS: Montelukast Sodium 10 mg Tablet PO SCH (20:13)
[2018-06-02] MEDS: HYDROcodone/Acetaminophen 7.5/325 mg Tablet PO PRN ×6 (01:06→22:32)
[2018-06-02] MEDS: Mometasone/Formoterol 120 PUFF INHALER INH SCH ×2 (07:25→18:52)
[2018-06-02] MEDS: Azithromycin 250 MG TAB PO SCH (08:21)
[2018-06-02] MEDS: predniSONE 20 MG TAB PO SCH (08:22)
[2018-06-02] MEDS: Metoprolol Tartrate 50 MG TAB PO SCH ×2 (08:22→20:45)
[2018-06-02] MEDS: guaiFENesin ER 600 MG TAB PO SCH ×2 (08:22→20:45)
[2018-06-02] MEDS: Famotidine 20 MG TAB PO SCH ×2 (08:22→20:45)
[2018-06-02] MEDS: Amlodipine 5 MG TAB PO SCH (08:24)
[2018-06-02] MEDS: Thyroid 30 MG TAB PO SCH (08:24)
--- NOTE | 2018-06-02 09:28 | PDOC.PN ---
- Subjective Encounter Start Date: 06/02/18 Encounter Start Time: 09:27 Feels like she is doing better. Still feels like she does not need the oxygen in spite of the fact that she desaturates without it. - Objective Resuscitation Status: Resuscitation Status FULL:Full Resuscitation Vital Signs & Weight: Vital Signs (12 hours) Temp Pulse Resp BP BP Pulse Ox 06/02/18 08:24 80 120/72 06/02/18 07:52 97.9 F 80 17 120/72 95 06/02/18 07:26 95 06/02/18 07:25 94 L 06/02/18 07:24 94 L 06/02/18 00:00 94 L 06/01/18 23:51 94 L Weight Weight 197 lb 9.6 oz I&O: 06/01/18 06/02/18 06/03/18 06:59 06:59 06:59 Intake Total 1450 1180 Balance 1450 1180 Result Diagrams: 05/30/18 09:03 05/30/18 09:03 Phys Exam - Physical Examination Constitutional: NAD [place] scattered wheezing, decreased BS throughout. Cardiovascular: RRR, no significant murmur Gastrointestinal: soft, non-tender, no distention, positive bowel sounds Dx/Plan (1) COPD exacerbation Code(s): J44.1 - CHRONIC OBSTRUCTIVE PULMONARY DISEASE W (ACUTE) EXACERBATION Status: Acute Comment: Feels like she is better. Still hypoxic without oxygen. Working on discharge plan as I believe she is stable. Definitely still requires home oxygen. CM working getting this for her. Resource issue. (2) HTN (hypertension) Code(s): I10 - ESSENTIAL (PRIMARY) HYPERTENSION Status: Chronic Qualifiers: Hypertension type: essential hypertension Qualified Code(s): I10 - Essential (primary) hypertension Comment: Lopressor and norvasc. Well controlled. (3) Hypothyroidism Code(s): E03.9 - HYPOTHYROIDISM, UNSPECIFIED Status: Chronic Qualifiers: Hypothyroidism type: unspecified Qualified Code(s): E03.9 - Hypothyroidism , unspecified Comment: [place] thyroid (4) Orthopnea Code(s): R06.01 - ORTHOPNEA Status: Acute Comment: Improved. - Plan * above.
[2018-06-02] MEDS: Montelukast Sodium 10 mg Tablet PO SCH (20:45)
[2018-06-03] MEDS: HYDROcodone/Acetaminophen 7.5/325 mg Tablet PO PRN ×4 (02:47→14:53)
[2018-06-03] MEDS: Mometasone/Formoterol 120 PUFF INHALER INH SCH (07:14)
[2018-06-03] MEDS: predniSONE 20 MG TAB PO SCH (10:05)
[2018-06-03] MEDS: Amlodipine 5 MG TAB PO SCH (10:06)
[2018-06-03] MEDS: Thyroid 30 MG TAB PO SCH (10:06)
[2018-06-03] MEDS: Metoprolol Tartrate 50 MG TAB PO SCH (10:08)
[2018-06-03] MEDS: Famotidine 20 MG TAB PO SCH (10:09)
[2018-06-03] MEDS: guaiFENesin ER 600 MG TAB PO SCH (10:09)
[2018-06-03] MEDS: Azithromycin 250 MG TAB PO SCH (10:09)
--- NOTE | 2018-06-03 11:20 | PDOC.PN ---
- Subjective Encounter Start Date: 06/03/18 Encounter Start Time: 11:13 - Objective Resuscitation Status: Resuscitation Status FULL:Full Resuscitation MAR Reviewed: Yes Vital Signs & Weight: Vital Signs (12 hours) Temp Pulse Resp BP BP Pulse Ox 06/03/18 10:06 71 146/94 H 06/03/18 07:55 97.8 F 71 18 143/88 H 93 L 06/03/18 07:16 70 12 06/03/18 04:00 98.3 F 67 20 146/94 H 92 L 06/03/18 00:05 94 L 06/02/18 23:45 98.6 F 72 20 150/76 H 92 L Weight Weight 197 lb 9.6 oz I&O: 06/02/18 06/03/18 06/04/18 06:59 06:59 06:59 Intake Total 1180 1800 Balance 1180 1800 Result Diagrams: 05/30/18 09:03 05/30/18 09:03 Dx/Plan - Plan * .
--- NOTE | 2018-06-03 12:46 | DIS ---
DATE OF ADMISSION: 05/27/2018 DATE OF DISCHARGE: 06/03/2018 DISPOSITION: Discharged home. PRIMARY CARE PROVIDER: Dr. Colby Jorge in __[place], [place]___. FINAL DIAGNOSES: Chronic obstructive pulmonary disease with acute exacerbation , acute respiratory failure with CO2 retention and hypoxemia, acute on chronic pain syndrome on chronic narcotic therapy, hypertension, hypothyroidism. HOSPITAL COURSE: On admission, she had an elevated CO2 level on electrolytes at 34. Chest x-ray showed interstitial changes, possibly chronic. Her arterial blood gas revealed a pH of 7.22, CO2 of 87, O2 of 91.5, white count was not significantly elevated at 9.9, follow up on 05/30/2018 was 9.6. The patient has had O2 saturations in the low 90s on O2. There is none documented recently of O2. She has been waiting for approval of oxygen therapy at home. She has no financing. She has no insurance. Today when I examined her, she was desirous of going home. Chest was clear to exam. O2 sat on room air varied from 90-91. While she was here, she had an echocardiogram, which shows 65%-70% EF. Her chest x-ray on admission was stable compared to previous prescriptions. She was seen while in the hospital by Dr. Reji Wright and Dr. Jaquan Gallardo, Pulmonology. Currently, she is stable and has apparently been so for several days. I have filled all of her current prescriptions for 1 month. CURRENT MEDICATIONS: Include Symbicort 2 puffs twice a day, [place] Thyroid 60 mg a day, amlodipine 5 mg a day, Mucinex 600 mg twice a day, metoprolol 100 mg twice a day, prednisone 40 mg a day for 4 days, then 20 mg a day, Singulair 10 mg a day, DuoNeb 3 mL q.6 hours, Pepcid 20 mg twice a day, Zithromax 500 mg daily for 7 days. ALLERGIES: She is allergic to IBUPROFEN and CODEINE. Patient is also on hydrocodone chronically. She has been informed that I do not refill prescriptions for controlled substances and she will need to check with her primary care doctor about that. She is on a heart healthy diet. She has been instructed to see her primary care provider in 1-2 weeks. Thirty five minutes have been spent for preparing this discharge. JUAN PABLO
[2018-06-03 17:55] VITALS: BP 136/84; TEMP 98.5
== END 2018-06-03 17:06 | disposition home or self-care (01) | DRG 189 ==
LOC: ERS 01:22 → OBSVTOIN 04:27 → INTOOBSV 04:27 → 2NO 04:27 → IMCU/EMU 05-29 12:42 → T4-A 05-30 17:26
PROVIDERS: ADMIT Hospitalist; ATTEND Hospitalist
PROC: 5A09357 Assistance with Respiratory Ventilation, Less than 24 Consecutive Hours, Continuous Positive Airway Pressure (ICD-10-PCS; principal; 2018-05-29)
DX: J96.22 Acute and chronic respiratory failure with hypercapnia (principal); J44.1 Chronic obstructive pulmonary disease with (acute) exacerbation; J96.21 Acute and chronic respiratory failure with hypoxia; F17.290 Nicotine dependence, other tobacco product, uncomplicated; I10 Essential (primary) hypertension; E03.9 Hypothyroidism, unspecified; G89.4 Chronic pain syndrome; M21.379 Foot drop, unspecified foot; E66.01 Morbid (severe) obesity due to excess calories; Z68.30 Body mass index [BMI] 30.0-30.9, adult; G47.33 Obstructive sleep apnea (adult) (pediatric); Z79.52 Long term (current) use of systemic steroids; Z79.891 Long term (current) use of opiate analgesic
CPT/HCPCS: 36415; 71046; 80053; 82553; 82805; 84484; 85007; 85025; 85027; 93005; 93306; 94640; 94760; 96374; 96375; A4216; J0360; J1940; J2060; J2930; J7506; J7620